=== PATIENT | female | born 2000 | race Hispanic/Latino ===

== ENCOUNTER 2022-11-21 17:31 | Emergency (ER) | payer SELFPAY ==
[~2022-11-21] VITALS: Ht 162.6 cm; Wt 80.3 kg
[2022-11-21] MEDS ORDERED: IBUPROFEN 600 MG TAB PO STA (17:56)
[2022-11-21] MEDS ORDERED: CYCLOBENZAPRINE HCL 10 MG TAB PO ONE (18:00)
[2022-11-21] MEDS ORDERED: HYDROCODONE/APAP 5MG-325MG TAB PO ONE (18:00)
[2022-11-21] MEDS ORDERED: IBUPROFEN600 MG PO (19:58)
[2022-11-21] MEDS ORDERED: CYCLOBENZAPRINE5 MG PO (19:58)
[2022-11-21 21:00] VITALS: BP 120/78
== END 2022-11-21 21:15 | disposition home or self-care (01) ==
LOC: ER 17:43
DX: M25.511 Pain in right shoulder (principal); M54.6 Pain in thoracic spine; M54.50 Low back pain, unspecified; W11.XXXA Fall on and from ladder, initial encounter; Y92.89 Other specified places as the place of occurrence of the external cause
CPT/HCPCS: 72072; 72100; 81025; 99282